=== PATIENT | male | born 1985 | race Two or more races ===

== ENCOUNTER 2022-10-15 19:24 | Emergency (ER) | payer BC, SELFPAY ==
--- NOTE | ~2022-10-15 | CT_ITS ---
EXAMINATION: CT brain wo con DATE: 10/15/2022 20:59 INDICATION: worsening headache . TECHNIQUE: Computed tomography (CT) of the head was performed without intravenous contrast. The mA wa s adjusted according to patient size. Iterative reconstruction technique was employed. The dose-lengt h product was 605.33 mGy-cm. COMPARISON: None. FINDINGS: No acute intracranial hemorrhage or extra-axial fluid collection. No hydrocephalus, mass, or herniation. No acute ischemic infarct. Unremarkable dural venous sinus attenuation. No acute osseous abnormality. The aerated spaces are clear. IMPRESSION: No acute intracranial process. Reviewed, dictated and finalized at location K.
[2022-10-15 19:28] VITALS: BP 143/89; PULSE 75; RESP 18; TEMP 37.2; O2SAT 100
[2022-10-15 19:44] LABS: Basophils Percent Auto 0.7 % (0.2-1.2); Eosinophils Absolute Auto 0.2 K/mm3 (0-0.3); Eosinophils Percent Auto 4.4 % (0-4.4); Hematocrit 41.2 % (42.0-52.0); Hemoglobin 13.6 g/dL (14.0-18.0); Immature Granulocyte Absolute 0.01 K/mm3 (0.00-0.031); Immature Granulocyte Percent A 0.2 % (0-0.5); Lymphocytes Absolute Auto 0.77 K/mm3 (0.9-3.2); Mean Corpuscular Volume 96.9 fl (80-100); Mean Platelet Volume 9.1 fl (7.4-10.4); Monocytes Absolute Auto 0.6 K/mm3 (0.1-0.6); Monocytes Percent Auto 13.7 % (2.6-8.5); Neutrophils Absolute Auto 2.9 K/mm3 (1.3-6.7); Platelet Count Result 154 k/mm3 (150-375); Red Blood Count 4.25 M/mm3 (4.6-6.20); Red Cell Distribution Width 12.7 % (11.5-14.5); White Blood Count 4.5 K/mm3 (4.5-10.0)
[2022-10-15 19:54] LABS: Alanine Aminotransferase 46 U/L (6-50); Albumin Level 4.4 g/dL (3.5-5.1); Alkaline Phosphatase 76 U/L (38-126); Anion Gap 10 mmol/L (8-16); Aspartate Amino Transferase 70 U/L (17-59); Bilirubin,Total 0.5 mg/dL (0.2-1.3); Blood Urea Nitrogen 16 mg/dL (9-20); Calcium 9.2 mg/dL (8.4-10.2); Carbon Dioxide 26 mmol/L (22-30); Chloride 91 mmol/L (98-107); Estimated CRCL calculation 111 ml/min; Estimated Glomerular Filt Rate > 60; Glucose 105 mg/dL (65-110); Potassium 4.7 mmol/L (3.4-5.0); Sodium 127 mmol/L (137-145)
[2022-10-15 19:58] LABS: INR 1.1; Prothrombin Time 14.2 Seconds (11.1-14.7)
[2022-10-15 20:36] LABS: Partial Thromboplastin Time 33.5 SECONDS (22.3-36.8)
[2022-10-15 20:42] VITALS: BP 140/93; PULSE 68; RESP 12; TEMP 37.7; O2SAT 100
--- NOTE | 2022-10-15 21:36 | ED.GENADULT ---
HPI - General Adult General Chief complaint: Unspecified Stated complaint: bilateral leg bruising Time Seen by Provider: 10/15/22 20:34 History of Present Illness HPI narrative: 37-year-old male reports for evaluation for bilateral lower extremity bruising to his anterior lower legs x24 to 48 hours. Patient states his symptoms started with small itchy papules overlying his fingers, then began to have bruising over his legs. He states over the past day, the bruising has significantly increased and is now achy . States he has not had anything similar to this in the past. He is also reporting a bitemporal headache that is worse behind the right eye. States his eyes feel tight . He reports a history of headaches but states this one is worse than his normal. He denies vision changes, focal numbness or weakness or head injury. He denies chest pain or shortness of breath, abdominal pain, nausea or vomiting, diarrhea, hematuria or dysuria, fever, body aches or chills, cough or congestion, vision loss, jaw claudication, IVDU, alcohol use. He does report decreased po intake due to lack of appetite since the onset of sx. Related Data Home Medications Medication Instructions Recorded Confirmed cholecalciferol (vitamin D3) 50 50 mcg PO DAILY 09/30/22 09/30/22 mcg (2,000 unit) tablet Allergies Allergy/AdvReac Type Severity Reaction Status Date / Time Penicillins Allergy Mild Unknown Verified 09/30/22 14:34 SULFA Allergy Intermediate Unknown Uncoded 09/30/22 14:34 Review of Systems Review of Systems: CONSTITUTIONAL: Denies fever, chills EYES: Denies visual changes, redness, or discharge. ENT: Denies rhinorrhea, congestion, sore throat, or otalgia. CARDIOVASCULAR: Denies chest pain, palpitations, or edema. RESPIRATORY: Denies cough or dyspnea. GASTROINTESTINAL: Denies abdominal pain, nausea, vomiting, or diarrhea. GENITOURINARY: Denies dysuria or hematuria. SKIN: See HPI MUSCULOSKELETAL: Denies back pain, joint pain, or myalgia. NEUROLOGIC: See HPI PSYCHIATRIC: Denies anxiety or depression. 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 Patient resting comfortably in exam bed. He is pleasant and conversational. HEAD: Normocephalic. No tenderness overlying temporal arteries EYES: PERRLA ENT: Nares clear. Mucous membranes moist. Oropharynx without tonsillar hypertrophy exudate or other lesions. NECK: Supple. No nuchal rigidity CHEST: No respiratory distress. Clear to auscultation, no adventitious breath sounds. HEART: Regular rate and rhythm. No murmur heard. Normal peripheral pulses. ABDOMEN: Soft, nontender, normal active bowel sounds. EXTREMITIES: Normal range of motion. No edema. SKIN: Large nonblanching purpura overlying the left and right anterior shins with small scattered purpura to the dorsum of the feet. Small scattered flesh-colored papules overlying bilateral hands and fingers. Negative Nikolsky's NEURO: No focal deficits. Alert and oriented x3. Cranial nerves II through XII intact. Strength 5/5 in BUE and BLE. Sensation intact throughout. PSYCH: Normal mood and affect. Course Vital Signs Vital signs: Vital Signs Temperature 99 F 10/15/22 19:28 Pulse Rate 75 10/15/22 19:28 Respiratory Rate 18 10/15/22 19:28
[2022-10-15 21:41] LABS: Appearance Urine Clear (Clear); Bilirubin Urine Negative (Negative); Blood Urine Negative (Negative); Color Urine Yellow (Yellow); Glucose Urine UA Negative (Negative); Ketones Urine Negative (Negative); Leukocyte Esterase Ur Negative LEU/UL (Negative); Nitrate Urine Negative (Negative); Protein Urine Negative (Negative); Specific Grav Ur 1.005 (1.001-1.035); Urobilinogen Urine 0.2 mg/dL (<2.0); pH Urine 6.5 (5.0-9.0)
[2022-10-15] MEDS: SODIUM CHLORIDE 0.9% IV 1,000 ML 999 ML IV CONT ×2 (21:43→22:52)
[2022-10-15 21:51] LABS: Add Urine Microscopic? NO
[2022-10-15 21:58] LABS: CRP 0.9 mg/dL (<1.0)
[2022-10-15 22:00] LABS: Lactic Acid Reflex < 0.5 mmol/L (0.7-2.0)
[2022-10-15 22:02] LABS: Strep Group A RT-PCR NOT DETECTED (Negative)
[2022-10-15 22:12] LABS: Influenza A QL RT-PCR Negative (Negative); Influenza B QL RT-PCR Negative (Negative); SARS-CoV-2 RNA PCR Negative (Negative)
[2022-10-15 22:14] LABS: Creatine Kinase 918 U/L (55-170)
[2022-10-15 22:15] LABS: Monoscreen Negative (Negative); Negative Monotest Control Negative (Negative); Positive Monotest Control Positive (Positive)
[2022-10-15 22:23] LABS: Erythrocyte Sedimentation Rate 15 mm/hr (0-20)
[2022-10-15 22:30] VITALS: BP 120/79; PULSE 78; RESP 14; O2SAT 100
[2022-10-15 23:06] LABS: Sodium Urine Random 7 meq/L
[2022-10-15] MEDS: diphenhydrAMINE HCl INJ 50 MG/ML VIAL 25 MG IV PUSH (23:12)
[2022-10-15] MEDS: KETOROLAC 15 MG/ML VIAL (*BKC) IV PUSH (23:13)
[2022-10-15] MEDS: PROCHLORPERAZINE EDISYLATE 10 MG/2 ML VIAL IV PUSH (23:14)
[2022-10-15 23:50] VITALS: BP 138/74; PULSE 64; RESP 13; TEMP 36.8; O2SAT 100
[2022-10-18 22:08] LABS: Osmolality, Urine 147 mOsm/kg (50-1200)
== END 2022-10-15 23:51 | disposition home or self-care (01) ==
PROVIDERS: Emergency Medicine; Emergency Provider Physician Assistant; PCP Family Medicine
DX: R51.9 Headache, unspecified (principal); E87.1 Hypo-osmolality and hyponatremia; D69.2 Other nonthrombocytopenic purpura; B34.9 Viral infection, unspecified; Z20.822 Contact with and (suspected) exposure to COVID-19
CPT/HCPCS: 36415; 70450; 80053; 81003; 82550; 83605; 83930; 83935; 84300; 85025; 85610; 85652; 85730; 86140; 86308; 87636; 87651; 96361; 96374; 96375; 99284; J0780; J1200; J1885; J7030

== ENCOUNTER 2022-10-17 15:08 | Outpatient (CLI) | payer BC, SELFPAY ==
[2022-10-17 15:44] LABS: Alanine Aminotransferase 41 U/L (6-50); Alkaline Phosphatase 71 U/L (38-126); Anion Gap 8 mmol/L (8-16); Aspartate Amino Transferase 52 U/L (17-59); Bilirubin,Total 0.4 mg/dL (0.2-1.3); Blood Urea Nitrogen 16 mg/dL (9-20); CRP 0.8 mg/dL (<1.0); Calcium 8.5 mg/dL (8.4-10.2); Carbon Dioxide 27 mmol/L (22-30); Chloride 92 mmol/L (98-107); Estimated Glomerular Filt Rate > 60; Glucose 104 mg/dL (65-110); Potassium 4.3 mmol/L (3.4-5.0); Sodium 127 mmol/L (137-145)
[2022-10-17 16:18] LABS: Erythrocyte Sedimentation Rate 20 mm/hr (0-20)
[2022-10-17 16:21] LABS: HIV 1/2 Ab P24 Ag Result Negative (Negative)
[2022-10-17 16:58] LABS: Hepatitis B Surface Antigen Negative (Negative)
[2022-10-17 17:03] LABS: HAV RESULT Negative (Negative); Hepatitis B Core IgM Result Negative (Negative)
[2022-10-17 17:15] LABS: Hepatitis C Virus Antibody Negative (Negative)
[2022-10-17 18:42] LABS: Rheumatoid Factor < 12.0 IU/ML (<12)
[2022-10-21 02:57] LABS: RNP Antibodies <1.0
[2022-10-21 20:02] LABS: Complement Total CH50 >60 U/mL (31-60)
[2022-10-24 18:24] LABS: Cryoglobulin, QL Negative (Negative)
== END 2022-10-17 15:09 | disposition home or self-care (01) ==
LOC: ANHLAB 15:09
PROVIDERS: PCP Family Medicine; Visit Provider Family Medicine
DX: R23.3 Spontaneous ecchymoses (principal); I77.6 Arteritis, unspecified; E87.1 Hypo-osmolality and hyponatremia
CPT/HCPCS: 36415; 80053; 80074; 82595; 85652; 86038; 86140; 86160; 86162; 86225; 86235; 86430; 86703; G0432

== ENCOUNTER 2022-10-28 15:24 | Outpatient (CLI) | payer BC, SELFPAY ==
[2022-10-28 15:55] LABS: Alanine Aminotransferase 37 U/L (6-50); Albumin Level 4.5 g/dL (3.5-5.1); Alkaline Phosphatase 76 U/L (38-126); Anion Gap 4 mmol/L (8-16); Aspartate Amino Transferase 43 U/L (17-59); Bilirubin,Total 0.5 mg/dL (0.2-1.3); Blood Urea Nitrogen 16 mg/dL (9-20); Calcium 9.2 mg/dL (8.4-10.2); Carbon Dioxide 30 mmol/L (22-30); Chloride 101 mmol/L (98-107); Estimated Glomerular Filt Rate > 60; Glucose 108 mg/dL (65-110); Potassium 4.1 mmol/L (3.4-5.0); Sodium 135 mmol/L (137-145)
== END 2022-10-28 15:25 | disposition home or self-care (01) ==
LOC: ANHLAB 15:26
PROVIDERS: PCP Family Medicine; Visit Provider Family Medicine
DX: E87.1 Hypo-osmolality and hyponatremia (principal)
CPT/HCPCS: 36415; 80053

== ENCOUNTER 2023-04-10 15:33 | Outpatient (CLI) | payer SELFPAY ==
--- NOTE | ~2023-04-10 | XR_ITS ---
EXAMINATION: XR_RIBSBI_CR DATE: 04/10/2023 15:59 INDICATION: Unspecified fall due to ice and snow. Right chest pain. TECHNIQUE: An anteroposterior view of the chest, 2 views of the right ribs on 3 radiographs, and 2 vi ews of the left ribs on 3 radiographs were obtained. COMPARISON: Chest 2 views 06/18/2018 FINDINGS: There is no pneumonia, pleural effusion, or pneumothorax. The heart size is normal. There a re fractures of the right sixth and seventh and eighth ribs. IMPRESSION: 1. Fractures of the right sixth-eighth ribs. Reviewed, dictated and finalized at location E. [employer]
== END 2023-04-10 15:34 | disposition home or self-care (01) ==
PROVIDERS: PCP Family Medicine; Visit Provider Nurse Practitioner Family
DX: R07.81 Pleurodynia (principal)
CPT/HCPCS: 71110